=== PATIENT | female | born 1980 | race Two or more races ===

== ENCOUNTER 2021-04-02 11:51 | Emergency (ER) | payer OTHER ==
[~2021-04-02] VITALS: Ht 167.6 cm; Wt 61.7 kg
[~2021-04-02 11:51] MED LIST: ACET1TAB12 PO; BISA5TAB10 PO; CALC500T88 PO; CARV6.25 PO; DOCU-159 PO; FERR325T28 PO; HYDR-4077 PO; HYDR50TA4 PO; LABE300T2 PO; LOSA50TA39 PO; OMEP20CA15 PO; PRED10TA PO; TRAM50TA PO
--- NOTE | 2021-04-02 12:14 | NUR ---
DR HOLLAND AT BEDSIDE
--- NOTE | 2021-04-02 12:48 | NUR ---
PRINTER TECHNICIAN AT PT'S BEDSIDE
[2021-04-02] MEDS ORDERED: HYDR-3980 PO (14:03)
--- NOTE | 2021-04-02 14:29 | NUR ---
Patient discharged to home in stable condition. Written and verbal after care instructions given. Patient verbalizes understanding of instruction.
[2021-04-02 14:49] VITALS: BP 100/63
== END 2021-04-02 14:49 | disposition home or self-care (01) ==
LOC: ER 11:57
DX: S72.401A Unspecified fracture of lower end of right femur, initial encounter for closed fracture (principal); W19.XXXA Unspecified fall, initial encounter; Y93.89 Activity, other specified; Y92.89 Other specified places as the place of occurrence of the external cause; Y99.8 Other external cause status
CPT/HCPCS: 72170-TC; 73564-TC